=== PATIENT | male | born 1975 | race Caucasian/White ===

== ENCOUNTER 2016-12-22 23:54 | Emergency (ER) | payer BC, OTHER ==
[~2016-12-22] VITALS: Ht 185.4 cm; Wt 95.0 kg
[~2016-12-22 23:54] MED LIST: ALBU1AER INH; ALBU6.7H INH; DOXY100T PO; MOTR200T PO; PHEN12.5 PO; TRAM50 PO
[2016-12-22 23:56] VITALS: BP 115/71; PULSE 71; RESP 16; TEMP 98; O2SAT 98
[2016-12-23] MEDS ORDERED: PRED-503 PO (02:36)
[2016-12-23] MEDS ORDERED: ALBU6.7H INH (02:36)
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
[2016-12-23] MEDS ORDERED: CLAR10CA3 PO (02:42)
[2016-12-23] MEDS ORDERED: predniSONE 20 MG TAB PO ONE (02:45)
[2016-12-23] MEDS ORDERED: RESP: ALBUTEROL 2.5 MG/IPRATROPIUM 0.5 MG NEB (SCH) INH ONE (02:45)
--- NOTE | 2016-12-23 03:20 | RADRPT ---
EXAM DATE/TIME: 12/23/2016 02:41 [facility] COMPARISON: CHEST SINGLE AP, January 19, 2016, 0:29. INDICATIONS : Wheezing. MEDICAL HISTORY : Pneumonia SURGICAL HISTORY : None. ENCOUNTER: Initial ACUITY: 2 days PAIN SCORE: 0/10 LOCATION: Bilateral chest FINDINGS: A single view of the chest demonstrates the lungs to be symmetrically aerated without evidence of mas s, infiltrate or effusion. The cardiomediastinal contours are unremarkable. Osseous structures are intact. CONCLUSION: No acute disease. Navjot Whitehead MD on December 23, 2016 at 3:18 Board Certified Radiologist. This report was verified electronically.
== END 2016-12-23 03:57 | disposition home or self-care (01) ==
LOC: NEPD 23:54
DX: J45.20 Mild intermittent asthma, uncomplicated (principal); Z87.891 Personal history of nicotine dependence
CPT/HCPCS: 71010; 94664; 99284; J7512